=== PATIENT | female | born 1950 | race Caucasian/White ===

== ENCOUNTER → 2017-08-26 | Outpatient (CLI) | payer MEDICARE, OTHER ==
--- NOTE | 2017-08-27 11:43 | RADIOLOGY IMAGING REPORT ---
FACILITY: [facility] PATIENT NAME: KHARI SHEARER : [id number] MR: [id number] V: [id number] EXAM DATE: [id number] ORDERING PHYSICIAN: ANITHA ALVARADO TECHNOLOGIST: Laurie Washburn PROCEDURE:BILATERAL DIGITAL SCREENING MAMMOGRAM WITH CAD ASSISTED INTERPRETATION & 3D BREAST TOMOSYNTHYSIS COMPARISON:Prior mammograms 07/06/13 INDICATIONS:SCREENING FINDINGS: Moderately dense fibroglandular tissue is seen throughout the breasts. The parenchymal pattern has remained stable allowing for difference in mammographic technique & patient positioning. There is no evidence of malignant appearing mass, malignant appearing calcification or secondary sign of malignancy in either breast. DIAGNOSTIC CATEGORY 1--NEGATIVE. RECOMMENDATIONS: ROUTINE MAMMOGRAM AND CLINICAL EVALUATION. IMPRESSION: BIRADS 1: Negative 1. No significant abnormality is seen Dictated by: Estela Rbobins M.D. on 08/26/2017 at 14:49 Transcribed by: MAROI on 08/26/2017 at 15:00 Approved by: Estela Robbins M.D. on 08/27/2017 at 11:42 [facility]
== END ==
LOC: MAMO 02:06
PROVIDERS: ATTEND Family Medicine
DX: Z12.31 Encounter for screening mammogram for malignant neoplasm of breast (principal)
CPT/HCPCS: 77063; 77067

== ENCOUNTER → 2018-09-27 | Outpatient (CLI) | payer OTHER ==
--- NOTE | 2018-09-27 08:44 | RADIOLOGY IMAGING REPORT ---
FACILITY: [facility] [place] PATIENT NAME: Minerva Pedraza : 1950 MR: [id number] V: [id number] EXAM DATE: ORDERING PHYSICIAN: ANITHA ALVARADO TECHNOLOGIST: Location: [facility] [place] Patient: Minerva Pedraza : 1950 Visit/Account:[id number] Date of Sevice: 09/27/2018 EXAMINATION: Head CT without intravenous contrast HISTORY: Dizzy spells x1/2 years, intermittent, nausea and weakness during dizziness TECHNIQUE: Contiguous axial images were obtained from the skull base to the vertex without intraven ous contrast. Sagittal and coronal reformatted images are also submitted. Dose Lowering Technique One of the following dose optimization techniques was utilized in the performance of this exam: Autom ated exposure control; adjustment of the mA and/or kV according to the patient's size; or use of an i terative reconstruction technique. Specific details can be referenced in the facility's radiology C T exam operational policy. COMPARISON: January 12, 2014 FINDINGS: Brain volume: Age-appropriate Ventricles: Normal. Acute ischemic changes: None. Hemorrhage: None. Masses / edema: None. Acuña-white: Negative. White matter: Normal. Vessels: Negative. Extra-axial: Negative. Calvarium / scalp: Negative. Skull base / visualized face: Negative. Visualized sinuses / orbits: Negative. IMPRESSION: Unremarkable head CT without contrast. If patient's symptoms persist MR is recommended for further e valuation Report Dictated By: Estela Robbins MD at 09/27/2018 8:38 AM Report E-Signed By: Estela Robbins MD at 09/27/2018 8:40 AM WSN:CB
--- NOTE | 2018-09-27 10:33 | RADIOLOGY IMAGING REPORT ---
FACILITY: [facility] PATIENT NAME: Minerva Pedraza : 1950 MR: [id number] V: [id number] EXAM DATE: ORDERING PHYSICIAN: ANITHA ALVARADO TECHNOLOGIST: Location: [facility] Patient: Minerva Pedraza : 1950 Visit/Account:[id number] Date of Sevice: 09/27/2018 CAROTID HISTORY: Dizziness COMPARISON: May 30, 2012 FINDINGS: Grayscale, duplex and color Doppler interrogation of the extracranial carotid and vertebral arteries was performed bilateral. On the right, peak systolic velocities within the common and internal carotid arteries are 92 and 113 cm/sec respectively. No significant plaque identified in the right carotid system. Antegrade flow within the common, internal and external carotid arteries as well as vertebral artery. ICA/CCA ratio 1.2. On the left, peak systolic velocities within the common and internal carotid arteries are 104 and 83 cm/sec respectively. No significant plaque identified in the left carotid system. Antegrade flow wi thin the common, internal and external carotid arteries as well as vertebral artery. ICA/CCA ratio 0. 9. The peak systolic velocity in the left vertebral artery was 104 cm/s, previously 56.7 cm IMPRESSION: No hemodynamically significant lesions identified in the carotid arteries bilaterally The left vertebral artery peak systolic velocity was 104 cm/s previously measuring 56.7 cm/s Velocity criteria are extrapolated from diameter data as defined by the Society of Radiologists in Ul trasound Consensus Conference Radiology 2003; 229;340-346 Report Dictated By: Estela Robbins MD at 09/27/2018 10:25 AM Report E-Signed By: Estela Robbins MD at 09/27/2018 10:28 AM WSN:[email or web address]
--- NOTE | 2018-09-27 17:15 | RADIOLOGY IMAGING REPORT ---
[place]AC[place] [facility] [place]IENT NAME: KHARI SHEARER : [id number] MR: [id number] V: [id number] EXAM DATE: [id number] ORDERING PHYSICIAN: ANITHA ALVARADO TECHNOLOGIST: Laurie Washburn PROCEDURE:BILATERAL DIGITAL SCREENING MAMMOGRAM WITH CAD ASSISTED INTERPRETATION & 3D TOMOSYNTHESIS COMPARISON:Prior mammograms 08/26/17, 07/06/13. INDICATIONS:SCREENING FINDINGS: The breasts are heterogeneously dense which can obscure small masses. The parenchymal pattern has remained stable allowing for difference in mammographic technique & patient positioning. DIAGNOSTIC CATEGORY 1--NEGATIVE. RECOMMENDATIONS: ROUTINE MAMMOGRAM AND CLINICAL EVALUATION. IMPRESSION: BIRADS 1: Negative. No significant abnormality is seen. Dictated by: Estela Robbins M.D. on 09/27/2018 at 11:20 Transcribed by: NADEEN on 09/27/2018 at 11:45 Approved by: Estela Robbins M.D. on 09/27/2018 at 17:13 [facility]
== END ==
LOC: CT 02:11
PROVIDERS: ATTEND Family Medicine
DX: Z12.31 Encounter for screening mammogram for malignant neoplasm of breast (principal); R42 Dizziness and giddiness; R55 Syncope and collapse
CPT/HCPCS: 70450; 77063; 77067; 93880